=== PATIENT | female | born 1970 | race Caucasian/White ===

== ENCOUNTER → 2017-04-05 | Outpatient (CLI) | payer BC ==
[~2017-04-05] MED LIST: ALBUTEROL17 GM INH; ALL DAY ALLERGY10 M3 PO; AMITRIPTYLINE H50 MG PO; AMLODIPINE BESYL5 MG PO; ASPIRIN81 M2 PO; AUGMENTIN PO; CELEXA PO; DESYREL50 MG PO; DIAMOX SEQUELS500 MG PO; DULERA 100 MCG/13 GM INH; DULOXETINE HCL60 MG PO; DYAZIDE 37.5/251 CAP PO; FLAXSEED OIL1000 M1 PO; FORADIL INH; HYDROCODON-ACE1 EAC5 PO; IBUPROFEN800 MG PO; KCL PO; LASIX PO; LOPRESSOR PO; LORATADINE PO; LYRICA PO; MULTI-DAY VITA1 EACH PO; NASONEX17 GM; NEURONTIN PO; NORVASC PO; OMEPRAZOLE20 M1 PO; PREVACID PO; PRILOSEC20 MG PO; PROTONIX PO; QVAR7.3 GM INH; SINGULAIR PO; SPIRIVA18 MCG INH; SYMBICORT INH; TIZANIDINE HCL4 M1 PO; VITAMIN C500 M1 PO; WELLBUTRIN SR PO; XOPENEX0.31 MG/3 IH; ZANTAC150 MG PO; ZOLOFT50 MG PO; ZONEGRAN100 MG
--- NOTE | ~2017-04-05 | EKG ---
PATIENT: TERRY CLINE UNIT #: [id number] Ventricular Rate: 70 BPM Atrial Rate: 70 BPM P-R Interval: 180 ms QRS Duration: 96 ms Q-T Interval: 394 ms QTC Calculation(Bezet): 425 ms P [place]: 1 degrees Calculated R [place]: 13 degrees Calculated T [place]: 0 degrees Diagnosis Line: Normal sinus rhythm Diagnosis Line: Normal ECG Diagnosis Line: No previous ECGs available Diagnosis Line: Confirmed by MARIA INES GROSS MD ([id number]) on Diagnosis Line: 04/06/2017 7:08:22 PM INTERPRETING MD: RENATO FENG
[2017-04-05 14:51] LABS: HEMATOCRIT 40.2 % (35.0-45.0); HEMOGLOBIN 12.8 gm/dL (12.0-16.0); MEAN CELL VOLUME 86.7 FL (83-96); MEAN CORPUSCULAR HEMOGLOBIN 27.7 PG (28-34); MEAN CORPUSCULAR HGB CONC 31.9 g/dL (30-36); MEAN PLATELET VOLUME 7.5 FL (6.5-11.5); RED BLOOD COUNT 4.64 X10e (3.90-5.30); RED CELL DISTRIBUTION WIDTH 13.2 % (11.0-15.5); WHITE BLOOD COUNT 15.6 X10e3 (4.0-10.5)
[2017-04-05 15:19] LABS: BUN/CREATININE RATIO 16.66; CALCIUM SERUM 9.6 mg/dL (8.4-10.2); CREATININE SERUM 0.9 mg/dL (0.6-1.4); GLOM FILT RATE Estimated 76.7 mL/min (>60); POTASSIUM 4.8 mmol/L (3.5-5.1)
== END | disposition home or self-care (01) ==
LOC: CAMB 13:52 → EDSTATUS 14:00 → CAMB 14:00
PROVIDERS: Specialist
DX: Z01.818 Encounter for other preprocedural examination (principal); K43.9 Ventral hernia without obstruction or gangrene
CPT/HCPCS: 36415; 80048; 85027; 93005

== ENCOUNTER → 2017-04-11 | Day surgery (SDC) | payer BC ==
--- NOTE | ~2017-04-11 | OR ---
Unit #: [id number] #: [id number] Patient: TERRY CLINE [id number] [facility] [address] [facility]. [place], [place] [address] [id number] MR#: [id number] NAME: TERRY CLINE ROOM: Date of Procedure: 04/11/2017 Admission Date: 04/11/2017 Surgeon: Blair Hui M.D. : 1970 Attending Physician: Blair Hui M.D. Primary Care Physician: Latrice Biggs M.D. OPERATIVE REPORT PREOPERATIVE DIAGNOSIS Incarcerated periumbilical hernia. POSTOPERATIVE DIAGNOSIS Incarcerated periumbilical hernia. PROCEDURE PERFORMED Laparoscopic ventral hernia repair using a 6-inch round Ventralex mesh. ANESTHESIA General endotracheal anesthesia. ESTIMATED BLOOD LOSS 20 mL. INDICATIONS FOR PROCEDURE A morbidly obese and chronically ill 46-year-old female presented with an incarcerated and exquisitely painful periumbilical hernia. After discussion of treatment options, we agreed on a laparoscopic ventral hernia repair. DESCRIPTION OF PROCEDURE The patient was admitted to [facility], positively identified, and transported to the operating room, and after induction of general endotracheal anesthesia, she received IV antibiotics per SCIP protocol and was prepped and draped in usual sterile fashion. Left upper quadrant 5 mm incision was made. An Optiview trocar was used to enter into the peritoneal cavity and created a pneumoperitoneum. Laparoscope was introduced into the peritoneal cavity under direct vision. Along the left lateral abdominal wall, a 10 mm and a 5-mm trocar were placed. Laparoscope was introduced into the peritoneal cavity and the hernia was photodocumented. It was incarcerated with a very tight fascial defect. The incarcerated omentum was reduced with counter pressure and traction on the incarcerated portion. The entire incarcerated portion was reduced. The hernia sac was noted and as much of the hernia sacs possible was debrided. The falciform ligament was then taken down to facilitate proper placement of the mesh. The 6-inch circular echo mesh was then introduced into the peritoneal cavity. The insufflation tubing was brought out with the use of neoClose needle just superior to the umbilicus. The insufflation balloon was inflated and the mesh was positioned. We checked the overlap of the mesh to the defect and we had excellent overlap. Along the right lateral abdominal wall, two 5 mm trocars were placed and then a Unit #: [id number] #: [id number] Patient: TERRY CLINE SecureStrap tacking device was used to secure the mesh to the anterior abdominal wall circumferentially. The insufflation balloon was removed. Few further tacks were placed. There was excellent hemostasis. The 10 mm fascial defect was closed with neoClose device and the closure was airtight. I then reduced the pneumoperitoneum as I removed laparoscope and trocars. 0.5% Marcaine with epinephrine was infiltrated into each trocar site. The skin was closed with 4-0 Monocryl subcuticular closure and Dermabond skin adhesive. Sponges and needle counts were correct x3. The patient was transported to recovery in stable condition. Findings and postoperative instructions were discussed with her mother. Dictated by... Efren Grover/toby TD: 04/12/2017 01:53 JOB #: [id number] OPERATIVE REPORT Page 1 of 1 X Blair Hui MD X PROCEDURE OPERATIVE NOTE
== END | disposition home or self-care (01) ==
LOC: CSUR 08:51
DX: K42.0 Umbilical hernia with obstruction, without gangrene (principal); J45.909 Unspecified asthma, uncomplicated; I10 Essential (primary) hypertension; K21.9 Gastro-esophageal reflux disease without esophagitis; E66.01 Morbid (severe) obesity due to excess calories; F41.9 Anxiety disorder, unspecified; G89.29 Other chronic pain; F32.9 Major depressive disorder, single episode, unspecified; G43.109 Migraine with aura, not intractable, without status migrainosus; G47.30 Sleep apnea, unspecified; M54.5 Low back pain; E89.0 Postprocedural hypothyroidism; Z68.42 Body mass index [BMI] 45.0-49.9, adult; Z87.01 Personal history of pneumonia (recurrent); Z88.1 Allergy status to other antibiotic agents; Z88.6 Allergy status to analgesic agent; Z91.018 Allergy to other foods; Z91.048 Other nonmedicinal substance allergy status; Z79.51 Long term (current) use of inhaled steroids; Z79.82 Long term (current) use of aspirin; Z79.1 Long term (current) use of non-steroidal anti-inflammatories (NSAID); Z98.890 Other specified postprocedural states
CPT/HCPCS: 84703; J0131; J0330; J0690; J1100; J1885; J2250; J2405; J3010